=== PATIENT | male | born 1935 | race Caucasian/White ===

== ENCOUNTER 2017-07-16 04:55 | Emergency (ER) | payer OTHER ==
[~2017-07-16] VITALS: Ht 175.3 cm; Wt 81.6 kg
[2017-07-16 05:15] VITALS: BP 151/81
== END 2017-07-16 05:50 | disposition left against medical advice (07) ==
LOC: ER 04:55
DX: R53.1 Weakness (principal); Z53.21 Procedure and treatment not carried out due to patient leaving prior to being seen by health care provider
CPT/HCPCS: 93005